=== PATIENT | male | born 1980 | race Caucasian/White ===

== ENCOUNTER 2018-08-16 10:20 | Emergency (ER) | payer SELFPAY ==
[~2018-08-16] VITALS: Ht 167.6 cm; Wt 104.0 kg
[2018-08-16] MEDS ORDERED: KETOROLAC 60MG/2ML VIAL IM ONE (14:15)
[2018-08-16] MEDS ORDERED: KETOROLAC 30MG/ML VIAL IV ONE ×2 (15:30)
[2018-08-16 17:35] VITALS: BP 133/87
== END 2018-08-16 17:40 | disposition home or self-care (01) ==
LOC: ER 12:54
DX: S16.1XXA Strain of muscle, fascia and tendon at neck level, initial encounter (principal); R42 Dizziness and giddiness; R51 Headache; V49.9XXA Car occupant (driver) (passenger) injured in unspecified traffic accident, initial encounter; Y93.89 Activity, other specified; Y92.89 Other specified places as the place of occurrence of the external cause; Y99.8 Other external cause status
CPT/HCPCS: 70450; 72125; 96374; 99284; J1885

== ENCOUNTER 2024-01-31 19:39 | Emergency (ER) | payer MEDICAID ==
[~2024-01-31] VITALS: Ht 172.7 cm; Wt 115.0 kg
[2024-01-31 20:03] VITALS: O2SAT 99
[2024-01-31] MEDS: ACETAMINOPHEN 325MG TABLET PO ONE (22:05)
[2024-01-31 22:44] LABS: CHLORIDE 108 mEq/L (98-107); POTASSIUM 3.7 mEq/L (3.5-5.1); SODIUM 139 mEq/L (136-145)
[2024-01-31 22:45] LABS: CALCIUM 8.9 mg/dL (8.7-10.4); CARBON DIOXIDE 25 mEq/L (21-32)
[2024-01-31 22:50] LABS: GLUCOSE 87 mg/dL (70-105); UREA NITROGEN BLOOD 17 mg/dL (9-23)
[2024-01-31] MEDS ORDERED: APIX5TAB MT (23:04)
[2024-01-31 23:34] VITALS: BP 139/72; PULSE 99; RESP 18; TEMP 98.6
== END 2024-01-31 23:40 | disposition home or self-care (01) ==
LOC: ER 19:39
DX: I82.402 Acute embolism and thrombosis of unspecified deep veins of left lower extremity (principal); I10 Essential (primary) hypertension
CPT/HCPCS: 36415; 73590; 80048; 93971; 99284